=== PATIENT | female | born 1970 | race Caucasian/White ===

== ENCOUNTER 2021-09-23 07:52 | Day surgery (SDC) | payer BC ==
[2021-09-20 11:47] VITALS: BMI 24.6
[2021-09-23] MEDS ORDERED: LIDOCAINE HCL/PF 2% SDV 5ML VIAL ONE (08:05)
[2021-09-23] MEDS ORDERED: PROPOFOL 20 ML ONE ×4 (08:06)
[2021-09-23 09:11] VITALS: TEMP 97.6
[2021-09-23 09:30] VITALS: BP 106/58; PULSE 72
== END 2021-09-23 09:31 | disposition home or self-care (01) ==
LOC: FASU-ENDO 07:52
PROVIDERS: ATTEND Internal Medicine Gastroenterology
PROC: 0DJD8ZZ Inspection of Lower Intestinal Tract, Via Natural or Artificial Opening Endoscopic (ICD-10-PCS; principal; 2021-09-23 08:49)
DX: Z12.11 Encounter for screening for malignant neoplasm of colon (principal)
CPT/HCPCS: 84703